=== PATIENT | male | born 1965 | race Caucasian/White ===

== ENCOUNTER 2017-06-11 14:35 | Emergency (ER) | payer OTHER, MEDICARE ==
[~2017-06-11] VITALS: Ht 180.3 cm; Wt 108.9 kg
[2017-06-11 14:51] VITALS: BP 142/93
--- NOTE | 2017-06-11 15:21 | ED DYSPNEA/ASTHMA COMPLAINT ---
History of Present Illness General Chief Complaint: Upper Respiratory Sx/Fever Stated Complaint: COUGHING PER CAREGIVER BRONCHITIS? PNEUMONIA? Source: patient, family, old records Exam Limitations: no limitations Vital Signs & Intake/Output Vital Signs & Intake/Output Vital Signs Date Time Temp Pulse Resp B/P B/P Pulse O2 O2 Flow FiO2 Mean Ox Delivery Rate 06/11 1500 95 06/11 1451 98.1 104 20 142/93 95 Room Air Allergies Coded Allergies: MDX - No Known Drug Allergies - Nkd (NO KNOWN DRUG ALLERGIES - NKDA) (06/02/13) Reconcile Medications Albuterol Sulfate (Proair Hfa) 90 MCG HFA.AER.AD 2 PUF INH Q4-6 PRN PRN SOB Amoxicillin/Potassium Clav (Augmentin 875-125 Tablet) 875 MG-125 MG TABLET 1 TAB PO BID BRONCHITIS Prednisone 10 MG TABLET 1 TAB PO DAILY BRONCHITS 4 TABS PO X 3 DAYS, 3 TABS PO X 3 DAYS, 2 TABS PO X 3 DAYS, 1 TAB PO X 3 DAYS Triage Note: PT C/O CHEST CONGESTION, PRODUCTIVE COUGH AND SOB X 1 WEEK. PT C/O CHEST TIGHTNESS Triage Nurses Notes Reviewed? yes Onset: Gradual Duration: worse persistent since (1.5 WEEKS) Timing: remote history Severity: moderate Activities at Onset: none Prior Episodes/Possible Cause: occasional episodes Modifying Factors: Improves With: immobilization. Worsens With: movement. HPI: Patient is a 52-year-old male with history of seizure disorder, asthma presenting to the emergency department with chief complaint of worsening upper respiratory congestion, intermittently productive cough of white green sputum. Denies any fevers or chills. Patient reports diffuse rib and chest pain with coughing. Denies shortness of breath. Has been using inhaler at home with little to no relief. Denies any lower extremities swelling. Denies abdominal pain. No sick contacts or recent travel. Due to worsening symptoms patient decided to come in for evaluation. Patient reports he had similar symptoms in the past when he was diagnosed with bronchitis. Past History Travel History Traveled to [place] past 21 day No Medical History Any Pertinent Medical History? 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 Hx Contributory? No Review of Systems Review of Systems Constitutional: Reports: no symptoms. Comments Review of systems: See HPI, All other systems negative. Constitutional, no chills fever or weight loss HEENT: No visual changes no sore throat Cardiovascular: No chest pain ,palpitation , orthopnea or ankle swelling Skin, no jaundice no rashes Respiratory: NO hemoptysis GI: No nausea no vomiting : No dysuria No hematuria Muscle skeletal: no back pain, no neck pain, Neurologic: No numbness no confusion NO HEADACHES Psych: No stress anxiety or depression,. Heme/endocrine: No bruising no bleeding no polyuria or polydipsia Immunology: No splenectomy or history of AIDS Physical Exam Physical Exam General Appearance: well developed/nourished, no apparent distress, alert, awake , comfortable Respiratory: wheezing Comments: Well-developed well-nourished person in no acute distress HEENT: Pupils equally round and reactive to light and accommodation. Nose is atraumatic. External auditory canal and Tympanic membranes clear. Pharynx normal. No swelling or edema. Neck: Supple, no lymphadenopathy Back: Nontender Cardiovascular: Regular rate and rhythms no murmurs rubs or gallops, normal JVP Respiratory: Chest nontender. No respiratory distress.diffuse w inspiratory heezing to auscultation bilaterally Extremity: No edema Neuro: Alert oriented x3 Skin: No appreciable rash on exposed skin, skin is warm and dry. Psych: Mood and affect is normal, memory and judgment is normal. Core Measures ACS in differential dx? No CVA/TIA Diagnosis No Sepsis Present: No Sepsis Focused Exam Completed? No Progress Differential Diagnosis: SINUSITIS, PNA, URI, BRONCHITIS, ASTHMA EXACERBATION Plan of Care: Orders Procedure Date/time Status AEROSOL (GEN) 06/11 1509 Complete EKG 06/11 1453 Active 06/11/2017 4:40:59 PMPatient feeling improved after breathing treatment and prednisone. Patient will be sent home with prednisone and Augmentin. Likely bronchitis. No signs of pneumonia on chest x-ray. Vitals are stable. Ambulatory oxygen saturation is around 97%. Patient stable for discharge. Diagnostic Imaging: Viewed by Me: Radiology Read. Discussed w/RAD: Radiology Read. Radiology Impression: PATIENT: KALPESH PINEDA PRESENT AGE: 52 PATIENT ACCOUNT NO: [id number] : 64 LOCATION: [facility] ORDERING PHYSICIAN: Vijaya SHEA SERVICE DATE: 06/11/17 EXAM TYPE: RAD - XRY-CHEST XRAY, TWO VIEWS EXAMINATION: XR CHEST CLINICAL INFORMATION : Cough, shortness of breath COMPARISON: Chest x-ray 06/02/2013 TECHNIQUE: 2 views of the chest were obtained. FINDINGS: No significant abnormality is noted involving the heart, lungs, mediastinum, bony thorax or soft tissues. IMPRESSION : Unremarkable examination. DICTATED BY: Yan Browne MD DATE/TIME DICTATED:1604 [employer] EQUIPMENT TENDER:STEVE DATE/TIME TRANSCRIBED:06/11/171604 CONFIDENTIAL, DO NOT COPY WITHOUT APPROPRIATE AUTHORIZATION. <Electronically signed in Other Vendor System> SIGNED BY: Yan Browne MD 06/11/17 1610 Initial ED EKG: SINUS TACH 104 BPM Prior EKG: unchanged Departure Departure Time of Disposition: 1633 Disposition: HOME OR SELF CARE Condition: Stable Clinical Impression Primary Impression: Bronchitis Referrals: Grayson URIARTE,Candy Juarez (PCP/Family) Shay Gray MD Additional Instructions: Follow-up with pulmonology or your primary care physician in the next 5-7 days. Take prednisone and antibiotics as prescribed. Use inhaler as directed. Return for worsening symptoms or concerns. Departure Forms: Customer Survey General Discharge Information Prescriptions: Current Visit Scripts Prednisone 1 TAB PO DAILY #30 TAB 4 TABS PO X 3 DAYS, 3 TABS PO X 3 DAYS, 2 TABS PO X 3 DAYS, 1 TAB PO X 3 DAYS Amoxicillin/Potassium Clav (Augmentin 875-125 Tablet) 1 TAB PO BID #20 TAB Albuterol Sulfate (Proair Hfa) 2 PUF INH Q4-6 PRN PRN SOB #1 INHAL Critical Care Note Critical Care Note Critical Care Time: non-applicable
--- NOTE | 2017-06-11 16:10 | RADIOLOGY REPORT ---
EXAMINATION: XR CHEST CLINICAL INFORMATION: Cough, shortness of breath COMPARISON: Chest x-ray 06/02/2013 TECHNIQUE: 2 views of the chest were obtained. FINDINGS: No significant abnormality is noted involving the heart, lungs, mediastinum, bony thorax or soft tissues. IMPRESSION: Unremarkable examination.
[2017-06-11] MEDS ORDERED: AUGMENTIN 875-1 EACH PO (16:36)
[2017-06-11] MEDS ORDERED: PROAIR HFA8.5 GM INH (16:36)
[2017-06-11] MEDS ORDERED: PREDNISONE10 M2 PO (16:36)
== END 2017-06-11 16:42 ==
LOC: ERH 14:35
DX: J40 Bronchitis, not specified as acute or chronic (principal); R07.89 Other chest pain
CPT/HCPCS: 1263; 71046; 93005; 93010

== ENCOUNTER 2017-10-13 10:21 | Emergency (ER) | payer OTHER, MEDICARE ==
[~2017-10-13] VITALS: Ht 175.3 cm; Wt 117.9 kg
[~2017-10-13 10:21] MED LIST: AUGMENTIN 875-1 EACH PO; PREDNISONE10 M2 PO; PROAIR HFA8.5 GM INH
[2017-10-13] MEDS ORDERED: PROAIR HFA8.5 GM INH (12:20)
[2017-10-13] MEDS ORDERED: CHERATUSSIN AC118 M1 PO (12:20)
[2017-10-13] MEDS ORDERED: PREDNISONE50 M1 PO (12:20)
--- NOTE | 2017-10-13 12:20 | ED DYSPNEA/ASTHMA COMPLAINT ---
History of Present Illness General Chief Complaint: General Adult Stated Complaint: ASTHMA ISSUES,COUGHING UP PHLEM Source: patient Exam Limitations: no limitations Vital Signs & Intake/Output Vital Signs & Intake/Output ED Intake and Output 10/14 0000 10/13 1200 Intake Total 0 Output Total Balance 0 Intake, Oral 0 Patient 260 lb Weight Weight Estimated Measurement Method Allergies Coded Allergies: No Known Allergies (10/13/17) Reconcile Medications Albuterol Sulfate (Proair Hfa) 90 MCG HFA.AER.AD 2 PUF INH Q4-6 PRN PRN cough wheezing Albuterol Sulfate (Proair Hfa) 90 MCG HFA.AER.AD 2 PUF INH Q4-6 PRN PRN SOB Amoxicillin/Potassium Clav (Augmentin 875-125 Tablet) 875 MG-125 MG TABLET 1 TAB PO BID BRONCHITIS Codeine Phosphate/Guaifenesi (Cheratussin AC Syrup) 10 MG-100 MG/5 ML LIQUID 10 ML PO Q6H PRN COUGH Prednisone 50 MG TABLET 1 TAB PO DAILY bronchitis Prednisone 10 MG TABLET 1 TAB PO DAILY BRONCHITS 4 TABS PO X 3 DAYS, 3 TABS PO X 3 DAYS, 2 TABS PO X 3 DAYS, 1 TAB PO X 3 DAYS Triage Note: PT TO ED FOR C/C OF PRODUCTIVE CLEAR TO GREEN COUGH X 2 DAYS. DENIES FEVERS OR CHILLS. REPORTS CHEST TIGHTNESS ONLY WHEN COUGHING. RAN OUT OF INHALER Triage Nurses Notes Reviewed? yes Onset: Abrupt Duration: day(s): (2-3) Timing: single episode today Severity: mild, moderate Activities at Onset: none Prior Episodes/Possible Cause: occasional episodes HPI: 52-year-old male with history of seizure disorder presents for evaluation of cough congestion and wheezing for the past week. Patient reports he is a former smoker and has had similar symptoms on multiple occasions. He recently was treated with antibiotics and prednisone without much improvement. He denies any fevers. He reports a cough productive of clear sputum. No chest pain hemoptysis or lower extremity edema. He has an albuterol inhaler at home that has been helping but states that it ran out. Past History Travel History Traveled to [place] past 21 day No Medical History Any Pertinent Medical History? 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 Hx Contributory? No Review of Systems Review of Systems Constitutional: Reports: no symptoms. EENTM: Reports: no symptoms. Respiratory: Reports: see HPI, cough, short of breath, sputum production, wheezing. Cardiovascular: Reports: no symptoms. GI: Reports: no symptoms. Genitourinary: Reports: no symptoms. Musculoskeletal: Reports: no symptoms. Skin: Reports: no symptoms. Neurological/Psychological: Reports: no symptoms. Hematologic/Endocrine: Reports: no symptoms. Immunologic/Allergic: Reports: no symptoms. All Other Systems: Reviewed and Negative Physical Exam Physical Exam General Appearance: well developed/nourished, no apparent distress, alert, awake Head: atraumatic, normal appearance Eyes: Bilateral: normal appearance, PERRL, EOMI. Ears, Nose, Throat: hearing grossly normal Neck: normal inspection, supple, full range of motion Respiratory: chest non-tender, no respiratory distress, wheezing Cardiovascular: regular rate/rhythm, normal peripheral pulses Peripheral Pulses: 2+ radial (R), 2+ radial (L) Gastrointestinal: soft, non-tender Extremities: normal inspection, normal range of motion, no edema Neurologic/Psych: no motor/sensory deficits, awake, alert, oriented x 3, normal gait, normal mood/affect Skin: intact, normal color, warm/dry Lymphatic: no anterior cervical margo Core Measures ACS in differential dx? No CVA/TIA Diagnosis No Sepsis Present: No Sepsis Focused Exam Completed? No Progress Differential Diagnosis: asthma, bronchitis, CHF, COPD, musculoskeletal pain, pulmonary embolism, pneumonia, rib fracture, unstable angina Plan of Care: Patient is here for evaluation of cough congestion and wheezing. On exam he has bilateral end expiratory wheezing. Vital signs are stable no cyanosis or hypoxia. Patient was medicated with prednisone and a DuoNeb. On reevaluation patient is feeling better. His wheezing is significantly improved. Patient was given a prescription for prednisone, albuterol inhaler and Cheratussin. Advised him to rest drink plenty of fluids. Make a follow-up with primary care doctor. Discussed return precautions patient agrees to plan Initial ED EKG: none Departure Departure Disposition: HOME OR SELF CARE Condition: Stable Clinical Impression Primary Impression: Acute bronchitis Qualifiers: Bronchitis organism: unspecified organism Qualified Code: J20.9 - Acute bronchitis, unspecified Referrals: Grayson URIARTE,Candy Juarez (PCP/Family) Additional Instructions: Take antibiotics and steroids as directed for the full course. Pro-air inhaler 2 puffs every 4-6 hours as needed. Cheratussin as needed for cough at nighttime this may cause drowsiness. Make a follow-up with your primary care doctor to review all results of today's visit monitor your symptoms return with any concerns. Departure Forms: Customer Survey General Discharge Information Prescriptions: Current Visit Scripts Prednisone 1 TAB PO DAILY #5 TAB Albuterol Sulfate (Proair Hfa) 2 PUF INH Q4-6 PRN PRN cough wheezing #1 INHAL Codeine Phosphate/Guaifenesi (Cheratussin AC Syrup) 10 ML PO Q6H PRN COUGH #240 ML Critical Care Note Critical Care Note Critical Care Time: non-applicable
[2017-10-13 13:08] VITALS: BP 126/88
== END 2017-10-13 13:09 ==
LOC: ERH 10:21
DX: J20.9 Acute bronchitis, unspecified (principal); R06.2 Wheezing; R56.9 Unspecified convulsions; Z87.891 Personal history of nicotine dependence
CPT/HCPCS: 1263